=== PATIENT | female | born 1995 | race Hispanic/Latino ===

== ENCOUNTER → 2016-12-03 | Outpatient (CLI) | payer OTHER ==
--- NOTE | 2016-12-03 14:27 | Diagnostic Imaging Report ---
First trimester OB ultrasound. INDICATION: Dating. FINDINGS: There is a normal-appearing single intrauterine . An embryo is seen with cardiac activity at 169 beats per minute. The crown-rump length is at 10 weeks and 6 days. JAMESON is 06/25/17. The right ovary is 3.1 x 2.6 x 3.2 CM in size and appears normal. The left ovary is obscured by bowel gas. IMPRESSION: Live single intrauterine . Dictated by: Dictated on workstation # [id number]
== END ==
LOC: RAD 13:35
PROVIDERS: ATTEND Family Medicine
DX: Z34.01 Encounter for supervision of normal first pregnancy, first trimester (principal)
CPT/HCPCS: 76801

== ENCOUNTER → 2017-02-08 | Outpatient (CLI) | payer OTHER ==
--- NOTE | 2017-02-08 11:19 | Diagnostic Imaging Report ---
INDICATION: survey. TECHNIQUE: Multiple real-time grayscale images were obtained over the gravid uterus. COMPARISON: 12/03/2016. FINDINGS: The heart rate is 129 BPM. The cervix is closed and measures 5.2 cm in length. The placenta is to the right and posterior with no placenta previa. There is adequate amniotic fluid seen. The survey demonstrates normal size of the ventricles, normal posterior fossa, and no abnormality in the spine. There is an unremarkable appearance of the urinary bladder and stomach with two umbilical arteries demonstrated. The cord insertion and the four-chamber view are not well seen due to position. Biometrical measurements are as follows: Biparietal 4.72 cm, age 20 weeks 2 days. Head circumference 17.15 cm, age 19 weeks 6 days. Abdominal circumference 14.21 cm, age 19 weeks 4 days. Femur length 3.27 cm, age 20 weeks 2 days. Sonographic estimate age: 20 weeks 0 days. This compares to a gestational age of 20 weeks and 3 days based on the JAMESON of 06/25/2017. Sonographic estimated date of delivery: 06/28/2017. Estimated Weight: 318 gm (+/- 46 gm). LMP percentile: 18%. heart rate: 129 beats per minute. number: 1 of 1. IMPRESSION: Followup within 2 weeks is recommended to attempt to better visualize the cord insertion and four-chamber view. Dictated by: Dictated on workstation # [id number]
== END ==
LOC: RAD 09:35
PROVIDERS: ATTEND Family Medicine
DX: Z36 Encounter for antenatal screening of mother; Z3A.20 20 weeks gestation of pregnancy
CPT/HCPCS: 76805

== ENCOUNTER → 2017-02-22 | Outpatient (CLI) | payer OTHER ==
--- NOTE | 2017-02-22 16:59 | Diagnostic Imaging Report ---
INDICATION: Evaluate umbilical cord insertion and cardiac structures. COMPARISON: 02/08/2017. TECHNIQUE: Multiple Real-time grayscale images were obtained over the gravid uterus. FINDINGS: A king intrauterine gestation is again identified. cardiac activity is present with a rate of 135 BPM. The placenta is posterior without evidence of previa. There is no evidence of cardiac anomaly. There is no evidence of herniation or abnormality at the cord insertion. IMPRESSION: No placental, umbilical cord, or cardiac abnormality is identified. Dictated by: Dictated on workstation # [id number]
== END ==
LOC: RAD 14:51
PROVIDERS: ATTEND Family Medicine
DX: Z36 Encounter for antenatal screening of mother (principal); Z3A.00 Weeks of gestation of pregnancy not specified
CPT/HCPCS: 76816

== ENCOUNTER 2017-06-28 18:41 | Inpatient (IN) | payer OTHER ==
[~2017-06-28] VITALS: Ht 144.8 cm; Wt 76.4 kg
[2017-06-28] MEDS ORDERED: D5 LR IV SOLUTION 1,000 ML IV ONE (19:08)
[2017-06-28] MEDS: D5 LR IV SOLUTION 1,000 ML IV SCH (19:30)
[2017-06-28 19:40] VITALS: BP 111/71
[2017-06-28] MEDS ORDERED: AMPICILLIN 2000 MG INJECTION (IM/IV) ONE (19:43)
[2017-06-28] MEDS ORDERED: LACTATED RINGERS 1,000 ML IV ONE (19:43)
[2017-06-28] MEDS ORDERED: NS (IVPB) 50 ML ONE (19:43)
[2017-06-28] MEDS ORDERED: AMPICILLIN INJECTION 2,000 MG in NS (IVPB) 50 ML IV SCH (20:03)
--- NOTE | 2017-06-28 20:11 | History & Physical-OB ---
OB - Chief Complaint & HPI Date/Time Date of Admission: Date of Admission: Jun 28, 2017 at 6:41 pm Time Seen by Provider: 19:45 Chief Complaint/History OB-Reason for Admission/Chief: Induction of Labor Hx : 1 Hx Para: 0 Expected Date of Delivery: Jun 23, 2017 Gestational Age in Weeks: 40 Gestational Age in Days: 5 Indication for induction: post dates History of Labs A positive, antibody neg. HIV/Hep B/RPR NR. GC/chlamydia neg. Declined quad screen. GBS positive. Allergies and Home Medications Allergies Coded Allergies: No Known Drug Allergies (Unverified , 06/28/17) OB - History Hx of Present Care: Yes Ultrasounds: Normal mid trimester US Obstetrical Complications: None Medical Complications: None Obstetrical History Hx : 1 Hx Para: 0 Patient Past Medical History PMHx: Latent tuberculosis Social History/Family History HIV/AIDS: No Recent Infectious Disease Expo: No Sexually Transmitted Disease: No Alcohol Use: Denies Use Recreational Drug Use: No Smoking Cessation: Never smoker Immunizations Tetanus Booster (TDap): Less than 5yrs Rubella: immune RPR/VDRL: Negative GBS Status: Positive HBsAG: Negative OB - Admission Exam Physical Exam HEENT: NCAT Abdomen: Gravid Extremities: Edema (mild non-pitting) Cervical Dilatation: 1cm Effacement: 0% Station: -3 Membranes: Intact Heart Rate: 120's Accelerations: Accelerations Present Decelerations: No Decelerations Short Term Variability: Present Development Intern Variability: Average (6-25) Contractions on Admission: None Mejias Scoring Tool (Modified) Dilation (cm): 1-2cm (1) Effacement (%): 0-30% (0) Descent/Station: -3 (0) Cervix Consistency: Soft (2) Cervix Position: Middle/Mid-Position (1) Subtract 1 point for: Postdate (-1), Nulliparity (-1) Mejias Score: 2 OB - Assessment/Plan/Diagnosis Assessment Assessment: group B positive strep, induction of labor Plan Plan: Induction Induction Method: other (ampicillin for GBS positive) Copy Copies To 1: SASHA LOPEZ MD, BETHANY N MD Jun 28, 2017 20:11
[2017-06-28 20:13] LABS: BASOPHILS % (AUTO) 0 % (0-10); EOSINOPHILS # (AUTO) 0.1 10^3/uL (0.0-0.3); EOSINOPHILS % (AUTO) 1 % (0-10); LYMPHOCYTES # (AUTO) 2.2 X 10^3 (1.0-4.0); LYMPHOCYTES % (AUTO) 28 % (12-44); MEAN CORPUSCULAR HEMOGLOBIN 29 PG (25-34); MEAN CORPUSCULAR HGB CONC 34 G/DL (32-36); MEAN CORPUSCULAR VOLUME 84 FL (80-99); MEAN PLATELET VOLUME 12.9 FL (7.4-10.4); MONOCYTES # (AUTO) 0.5 X 10^3 (0.0-1.0); MONOCYTES % (AUTO) 6 % (0-12); NEUTROPHILS # (AUTO) 5.2 X 10^3 (1.8-7.8); NEUTROPHILS % (AUTO) 65 % (42-75); PLATELET COUNT 129 10^3/uL (130-400); RED BLOOD COUNT 4.36 10^6/uL (4.35-5.85); RED CELL DISTRIBUTION WIDTH 15.6 % (10.0-14.5)
[2017-06-28 21:00] VITALS: BP 115/74
[2017-06-28] MEDS: MISOPROSTOL 100 MCG (CYTOTEC) TAB PV SCH (21:02)
[2017-06-28] MEDS ORDERED: PREN-53 PO (21:42)
[2017-06-28 22:00] VITALS: BP 109/55
[2017-06-28] MEDS: CATHETER FLUSH 10 ML SYR IV SCH (22:00)
[2017-06-28 23:00] VITALS: BP 105/60
[2017-06-29] VITALS (28 sets, daily range): BP systolic 110–137; BP diastolic 65–94
[2017-06-29] MEDS: AMPICILLIN INJECTION 1,000 MG in NS (IVPB) 50 ML IV SCH ×6 (00:55→21:14)
[2017-06-29] MEDS: MISOPROSTOL 100 MCG (CYTOTEC) TAB PV SCH ×3 (00:55→09:11)
[2017-06-29] MEDS: D5 LR IV SOLUTION 1,000 ML IV SCH ×4 (03:38→18:50)
[2017-06-29] MEDS: CATHETER FLUSH 10 ML SYR IV SCH ×3 (06:00→22:15)
[2017-06-29] MEDS ORDERED: OXYTOCIN/NORMAL SALINE 500 ML IV ONE (13:32)
[2017-06-29] MEDS: OXYTOCIN/NORMAL SALINE 500 ML IV SCH (13:46)
--- NOTE | 2017-06-29 17:16 | Labor Progress Note ---
Labor Progress Note Labor Progress Note Date Seen by Provider: Jun 29, 2017 Time Seen by Provider: 17:13 Subjective: Pt feeling more painful contractions. Objective: Cervical exam: 10/24/ Consistency: soft Position: anterior Presentation: vertex heart tones: 140 beats per minute, moderate variability, reactive Tocometer: 5-6 ctx/10 minutes Assessment/Plan: Mary Lacey is a (21 /Para 1 / 0,Gestational Age (wks)40 here for IOL for postdates. CEFM/TOCO Double balloon catheter placed without complication, will hold pitocin for now given frequent contractions with minimal cervical change Anesthesia: None Anticipate vaginal delivery Vitals - Labs Vital Signs - I&O Vital Signs 06/29/17 06/29/17 06/29/17 05:05 11:30 14:20 Temp 97.7 Pulse 81 Resp 16 B/P (MAP) 125/76 O2 Delivery Room Air Labs Laboratory Tests 06/28/17 19:30: White Blood Count 8.0, Red Blood Count 4.36, Hemoglobin 12.5, Hematocrit 37, Mean Corpuscular Volume 84, Mean Corpuscular Hemoglobin 29, Mean Corpuscular Hemoglobin Concent 34, Red Cell Distribution Width 15.6H, Platelet Count 129L, Mean Platelet Volume 12.9H, Neutrophils (%) (Auto) 65, Lymphocytes (%) (Auto) 28 , Monocytes (%) (Auto) 6, Eosinophils (%) (Auto) 1, Basophils (%) (Auto) 0, Neutrophils # (Auto) 5.2, Lymphocytes # (Auto) 2.2, Monocytes # (Auto) 0.5, Eosinophils # (Auto) 0.1, Basophils # (Auto) 0.0 SASHA LOPEZ MD Jun 29, 2017 5:16 pm
[2017-06-29] MEDS: fentaNYL INJECTION 100 MCG/2 ML AMP IVP PRN (20:17)
[2017-06-30] VITALS (68 sets, daily range): BP systolic 92–140; BP diastolic 51–85
[2017-06-30] MEDS: D5 LR IV SOLUTION 1,000 ML IV SCH ×3 (01:34→17:16)
[2017-06-30] MEDS: AMPICILLIN INJECTION 1,000 MG in NS (IVPB) 50 ML IV SCH ×5 (01:34→17:16)
[2017-06-30] MEDS: CATHETER FLUSH 10 ML SYR IV SCH ×2 (06:05→14:19)
--- NOTE | 2017-06-30 06:41 | Labor Progress Note ---
Labor Progress Note Labor Progress Note Date Seen by Provider: Jun 30, 2017 Time Seen by Provider: 06:25 Subjective: Pt is feeling hungry and tired. Objective: Cervical exam: 5/60/-2 Consistency: soft Position: anterior Presentation: vertex heart tones: 130 beats per minute, moderate variability, no decels Tocometer: 3-4 ctx/10 minutes Assessment/Plan: Mary Lacey is a 21 /Para 1 / 0,Gestational Age (wks)40 here for IOL for postdates. CEFM/TOCO Ly bulb removed due to length of insertion at just over 12 hours AROM done at 0630 with clear fluid Restart pitocin Anesthesia: none Anticipate vaginal delivery. Vitals - Labs Vital Signs - I&O Vital Signs 06/29/17 06/30/17 16:30 06:13 Temp 97.8 Pulse 83 Resp 18 B/P (MAP) 105/67 O2 Delivery Room Air SASHA LOPEZ MD Jun 30, 2017 6:41 am
[2017-06-30] MEDS: fentaNYL INJECTION 100 MCG/2 ML AMP IVP PRN ×2 (08:09→09:08)
[2017-06-30] MEDS ORDERED: fentaNYL INJECTION 100 MCG/2 ML AMP IVP PRN (10:45)
[2017-06-30] MEDS ORDERED: SUFENTA 0.6MCG/ML BUPIVA 0.125 100 ML ONE (10:51)
[2017-06-30] MEDS ORDERED: fentaNYL INJECTION 100 MCG/2 ML AMP ONE ×2 (12:03→20:11)
[2017-06-30] MEDS ORDERED: LACTATED RINGERS 1,000 ML IV ONE ×2 (13:51→20:48)
[2017-06-30] MEDS ORDERED: diphenhydrAMINE 50 MG/ML INJ (BENADRYL) IV PRN ×2 (14:00→21:45)
[2017-06-30] MEDS ORDERED: METOCLOPRAMIDE INJ 10 MG/2 ML (REGLAN) IV PRN ×2 (14:00→21:45)
[2017-06-30] MEDS ORDERED: ONDANSETRON 4 MG/2 ML (SDV) Z0FRAN IV PRN ×2 (14:00→21:45)
[2017-06-30] MEDS ORDERED: EPIDURAL (SUFENTA 0.6MCG/ML BUPIVA 0.125%) 100 ML BAG EPI PRN (14:00)
[2017-06-30] MEDS ORDERED: NALOXONE 0.4 MG/ML 1 ML (NARCAN) VIAL IV PRN ×4 (14:00→21:45)
[2017-06-30] MEDS: OXYTOCIN/NORMAL SALINE 500 ML IV SCH ×2 (16:30→23:00)
[2017-06-30] MEDS ORDERED: NS (IVPB) 0 ML ONE (19:55)
[2017-06-30] MEDS ORDERED: CITRIC ACID/SOB CIT (BICITRA) 30 ML UDC ONE (19:55)
[2017-06-30] MEDS ORDERED: ceFAZolin 2 GM/50 ML NS 50 ML ONE (19:55)
[2017-06-30] MEDS ORDERED: FAMOTIDINE 20MG/2ML IV (PEPCID) ONE (19:56)
[2017-06-30] MEDS ORDERED: KETAMINE HCL 100 MG/ML 5 ML VIAL ONE (20:12)
[2017-06-30] MEDS ORDERED: FAMOTIDINE 20MG/2ML IV (PEPCID) IV ONE (20:15)
[2017-06-30] MEDS ORDERED: METOCLOPRAMIDE INJ 10 MG/2 ML (REGLAN) IV ONE (20:15)
[2017-06-30] MEDS ORDERED: CITRIC ACID/SOB CIT (BICITRA) 30 ML UDC PO ONE (20:15)
[2017-06-30] MEDS ORDERED: CATHETER FLUSH 10 ML SYR IV PRN (20:15)
[2017-06-30] MEDS: metroNIDAZOLE 500MG/100ML IVPB 100 ML ONE (20:20)
--- NOTE | 2017-06-30 20:26 | Progress Note-Pre Operative ---
Pre-Operative Progress Note H&P Reviewed The H&P was reviewed, patient examined and no changes noted per her PCP Dr. Keenan. Date Seen by Provider: Jun 30, 2017 Time Seen by Provider: 20:25 Date H&P Reviewed: Jun 30, 2017 Time H&P Reviewed: :25 Pre-Operative Diagnosis: term/postdates in labor with failure to progress GRAHAM GERMAIN MD Jun 30, 2017 8:26 pm
[2017-06-30] MEDS ORDERED: MEPERIDINE (DEMEROL) INJ 100 MG/ML IM PRN (20:30)
[2017-06-30] MEDS ORDERED: TETANUS,DIPTH,PERTUSS P/F (BOOSTRIX) 0.5 ML VIAL IM ONE (20:30)
[2017-06-30] MEDS ORDERED: PROMETHAZINE INJ 25 MG/ML (PHENERGAN) AMP IM PRN (20:30)
[2017-06-30] MEDS ORDERED: ONDANSETRON 4 MG/2 ML (SDV) Z0FRAN IVP PRN ×2 (20:30→21:45)
[2017-06-30] MEDS ORDERED: MEASLES,MUMPS,RUBELLA 1 EA INJ SC ONE (20:30)
[2017-06-30] MEDS ORDERED: metroNIDAZOLE 500MG/100ML IVPB 100 ML IV NR (20:30)
[2017-06-30] MEDS ORDERED: D5 LR IV SOLUTION 1,000 ML IV ONE (20:31)
[2017-06-30] MEDS ORDERED: ONDANSETRON 4 MG/2 ML (SDV) Z0FRAN ONE (20:59)
[2017-06-30] MEDS ORDERED: OXYTOCIN/NORMAL SALINE 1,000 ML IV ONE (21:28)
[2017-06-30] MEDS ORDERED: KETOROLAC 30 MG/ML VIAL ONE (21:33)
[2017-06-30] MEDS ORDERED: MEPERIDINE (DEMEROL) INJ 50 MG/ML IVP PRN (21:45)
[2017-06-30] MEDS ORDERED: morphine INJ 10 MG/ML 1ML (SYR OR VIAL) IVP PRN (21:45)
[2017-06-30] MEDS: KETOROLAC 30 MG/ML VIAL IVP SCH (21:45)
[2017-07-01] MEDS: metroNIDAZOLE 500MG/100ML IVPB 100 ML ONE (00:33)
[2017-07-01] MEDS: AMPICILLIN INJECTION 1,000 MG in NS (IVPB) 50 ML IV SCH ×3 (00:34→06:02)
[2017-07-01] MEDS: DOCUSATE SODIUM 100 MG (COLACE) CAP PO SCH ×3 (00:39→21:32)
[2017-07-01] MEDS: CATHETER FLUSH 10 ML SYR IV SCH ×2 (00:39→06:02)
[2017-07-01] MEDS: KETOROLAC 30 MG/ML VIAL IVP SCH (03:28)
[2017-07-01] MEDS: oxyCODONE/APAP 10/325MG (PERCOCET 10) TABLET PO PRN ×3 (03:40→21:33)
[2017-07-01 04:00] VITALS: BP 108/68
--- NOTE | 2017-07-01 04:56 | OPERATIVE REPORT ---
DATE OF SERVICE: 06/30/2017 PREOPERATIVE DIAGNOSIS: Postdates in labor with failure to progress. POSTOPERATIVE DIAGNOSIS: Postdates in labor with failure to progress. OPERATIVE PROCEDURE: Primary low transverse delivery of a viable female infant with Apgars of 9 and 9 at 1 and 5 minutes respectively, weight 7 pounds 4 ounces, time of 2108 and cord blood pH was 7.3. OPERATIVE DESCRIPTION: With the patient in the supine position under satisfactory spinal anesthesia, she was prepped and draped in usual fashion for abdominal surgery. A Ly catheter had been placed in the urinary bladder during labor and that was left to dependent drainage. A Pfannenstiel incision was made through the skin with a scalpel. The patient's abdomen entered in the usual manner. Bladder retractor was placed into position and a clean scalpel was used to make a 4 cm hysterotomy incision transversally across the lower uterine segment. Small amount of meconium-stained fluid was released on hysterotomy. The incision was extended by blunt dissection. A vigorous viable female was delivered via the uterine incision. had Apgars of 9 and 9 at 1 and 5 minutes respectively. Weight was 7 pounds 4 ounces. Cord blood pH of 7.3 and time of 2108. The infant was bulb suctioned on delivery of the head and again on completion of delivery. The umbilical cord was doubly clamped and cut and the passed to Dr. Keenan, link cutter, in attendance for delivery. Cord blood was obtained. The placenta delivered spontaneously Huitron. It was normal with a 3-vessel cord. The uterus was exteriorized and to wipe clean with a wet laparotomy sponge. Uterine incision was closed with a running locked suture of 2-0 Vicryl. Hemostasis was satisfactory. The uterus was quite atonic and boggy responding only minimally with IV Pitocin. This patient had labored for a prolonged period and had been on Pitocin for much of that time. A modified B-Miller suture was placed using 2-0 looped chromic sutures divided in the middle. This was performed in a modified manner compressing the uterus nicely and controlling blood loss. The uterus was now returned to abdominal cavity. All blood clot and debris removed from the abdominal cavity. Sponge and needle counts correct. Hemostasis assured. The anterior parietal peritoneum was closed with a running suture of 2-0 Vicryl. Rectus muscles were closed with that suture as well. Rectus fascia was closed with 2-0 Vicryl, subcutaneous tissue with 2-0 Vicryl and the skin was stapled. Sponge and needle counts were correct at the end of procedure. Estimated blood loss for the procedure was around 600 mL. The patient tolerated the procedure well and was transferred to the recovery room in stable condition. taken stable to the full term nursery under the care of Dr. Keenan. Job ID: [id number] DocumentID: [id number] Dictated Date: 06/30/2017 21:36:47 Steam Tunnel Feeder Date: 07/01/2017 04:56:37 Dictated By: GRAHAM GERMAIN MD
[2017-07-01] MEDS: D5 LR IV SOLUTION 1,000 ML IV SCH (06:01)
--- NOTE | 2017-07-01 07:52 | Progress Note-Standard ---
Standard Progress Note Progress Notes/Assess & Plan Date Seen by Provider: Jul 01, 2017 Time Seen by Provider: 07:51 Progress/Assessment & Plan this patient is without complaint. She is ambulating, voiding, has good pain control, is tolerating by mouth well. patient denies chest pain, denies shortness of breath, denies headache, denies nausea vomiting. Vital Signs Date Time Temp Pulse Resp B/P (MAP) Pulse Ox O2 Delivery O2 Flow Rate FiO2 07/01/17 04:00 99.0 85 18 108/68 97 07/01/17 00:26 Room Air 06/30/17 23:30 98.0 71 18 97/53 99 06/30/17 23:00 98.2 67 18 95/61 96 06/30/17 20:30 77 18 127/76 97 06/30/17 20:00 90 18 126/75 98 06/30/17 19:31 99.1 82 18 134/80 99 06/30/17 19:17 75 18 130/76 99 06/30/17 19:05 73 18 132/77 99 06/30/17 19:00 06/30/17 18:45 83 18 132/71 100 06/30/17 18:30 82 18 131/79 06/30/17 18:15 79 18 134/76 97 06/30/17 18:00 98.7 86 18 113/72 97 06/30/17 17:45 73 18 112/70 97 06/30/17 17:30 06/30/17 17:20 71 18 124/74 98 06/30/17 17:15 06/30/17 17:00 77 18 117/71 98 06/30/17 16:45 71 18 126/75 98 06/30/17 16:30 85 18 125/70 99 06/30/17 16:15 98.5 73 18 127/73 99 06/30/17 16:00 81 18 117/70 99 06/30/17 15:45 81 18 111/63 99 06/30/17 15:30 82 18 115/66 98 06/30/17 15:15 77 18 107/58 97 06/30/17 15:00 72 18 105/56 98 06/30/17 14:45 82 18 121/69 97 06/30/17 14:30 77 18 125/71 98 06/30/17 14:15 81 18 111/69 97 06/30/17 14:00 97.9 75 18 113/71 97 06/30/17 13:45 78 18 115/70 97 06/30/17 13:30 85 18 108/70 98 06/30/17 13:15 101 18 101/61 98 06/30/17 13:00 87 18 106/60 96 06/30/17 12:56 83 106/61 06/30/17 12:53 87 107/62 98 06/30/17 12:50 90 105/64 06/30/17 12:48 96 110/67 06/30/17 12:45 86 18 107/56 96 06/30/17 12:42 82 103/58 06/30/17 12:39 89 105/61 97 06/30/17 12:36 92 108/63 96 06/30/17 12:33 86 104/58 06/30/17 12:30 89 18 106/61 99 06/30/17 12:26 93 105/60 06/30/17 12:23 96 107/64 98 06/30/17 12:20 99.0 91 106/65 98 06/30/17 12:15 91 18 109/70 99 06/30/17 12:05 84 128/75 98 06/30/17 12:00 90 18 135/84 99 06/30/17 11:52 90 18 137/76 06/30/17 11:40 99 18 140/69 06/30/17 11:20 93 18 114/59 06/30/17 10:50 99 18 113/68 06/30/17 10:35 85 18 103/55 06/30/17 09:40 99.3 06/30/17 09:23 81 18 120/69 06/30/17 08:40 84 18 122/81 06/30/17 08:25 80 18 109/63 06/30/17 08:05 82 18 125/67 06/30/17 07:52 76 18 134/85 the abdomen is benign. The incision is clean dry and intact. The fundus is firm below the umbilicus nontender. Extremities show clubbing cyanosis. There is no Homans sign. There is some pretibial pitting edema that is normal. Assessment and plan postoperative day number 1 status post primary delivery doing well. Plan is for routine convalescence care GRAHAM GERMAIN MD Jul 01, 2017 7:52 am
[2017-07-01 08:35] VITALS: BP 110/59
[2017-07-01] MEDS: IBUPROFEN 800 MG (MOTRIN) TAB PO SCH ×3 (09:54→21:32)
--- NOTE | 2017-07-01 11:42 | Anesthesia-Regional Post-Op ---
Regional Patient Condition Mental Status: Alert, Oriented x3 Circulation: Same as Pre-Op Headache: Absent Sensation: Full Recovery Motor Block: Absent Post Op Complications Complications None Follow Up Care/Instructions Patient Instructions None needed. Anesthesia/Patient Condition Patient is doing well, no complaints, stable vital signs, no apparent adverse anesthesia problems. No complications reported per nursing. SAMANTHA REICH CRNA Jul 01, 2017 11:42
[2017-07-01 12:57] VITALS: BP 112/73
[2017-07-01 16:04] VITALS: BP 107/67
[2017-07-01 20:02] VITALS: BP 110/74
[2017-07-01] MEDS ORDERED: IBUPROFEN 800 MG (MOTRIN) TAB PO SCH (20:30)
[2017-07-02 02:00] VITALS: BP 101/65
[2017-07-02] MEDS: oxyCODONE/APAP 10/325MG (PERCOCET 10) TABLET PO PRN ×2 (04:25→10:34)
[2017-07-02] MEDS: IBUPROFEN 800 MG (MOTRIN) TAB PO SCH ×2 (04:25→10:34)
--- NOTE | 2017-07-02 07:45 | Discharge Summary ---
Discharge Summary term primary delivery this patient is a 21-year-old female patient of Dr. Keenan. She was admitted on May 28 for Cervidil cervical ripening. On the she was started on Pitocin for labor induction. Apparently may very little progress through that day. On May 30 patient with continued up by Pitocin she progressed to about 5 cm where she stalled. After a number of hours of no cervical change Dr. Keenan to proceed with delivery. I was consult for that . Patient was taken the operating room where under spinal analgesia primary was performed. The procedure was uncomplicated patient recovered uneventfully. On May 31 the patient was ambulating, voiding, tolerating by mouth, had good pain control. She had routine care through the day. Now on July 02 patient again is ambulating, voiding, tolerating by mouth well and has good pain control. She is requesting discharge home. She denies headache, denies shortness of breath, denies nausea vomiting, denies chest pain. primarydiagnoses this hospitalization is postdates primary delivery secondary diagnoses are failure to progress in labor, cephalopelvic disproportion, GBS positive culture Operation procedures include cervical ripening, Pitocin induction of labor, epidural analgesia, bimanual analgesia for primary delivery., Patient was given appropriate discharge instructions verbally and writing Was placed in chart Discharge medications are Percocet and Motrin and Colace Clinical Quality Measures DVT/VTE Risk/Contraindication: Risk Factor Score Per Nursin RFS Level Per Nursing on Admit: 1=Low/No VTE PPX GRAHAM GERMAIN MD Jul 02, 2017 7:45 am
[2017-07-02] MEDS ORDERED: DOCU100C37 PO (07:46)
[2017-07-02] MEDS ORDERED: OXYC-465 PO (07:46)
[2017-07-02] MEDS ORDERED: IBUP-1780 PO (07:46)
--- NOTE | 2017-07-02 07:47 | Discharge Instructions ---
Discharge Instructions Discharge Medications New, Converted or Re-Newed RX: RX on Chart Patient Instructions Patient Instructions: as directed Return to The Hospital For: as directed Activity & Diet Discharge Diet: No Restrictions Activity as Tolerated: No Orders-Post D/C & Referrals Follow Up Appt: RTC 1 week for incision check with me Call to make follow up appt. for patient with Dr. Keenan in 6 weeks. Wound Care: Remove jennifer, apply benzoin and steri strips. Activity Per routine post instructions. Diet as tolerated Patient may shower or tub bathe as desired. Continue home meds GRAHAM GERMAIN MD Jul 02, 2017 7:47 am
[2017-07-02 09:00] VITALS: BP 112/75
[2017-07-02] MEDS: DOCUSATE SODIUM 100 MG (COLACE) CAP PO SCH (10:34)
[2017-07-02 14:00] VITALS: BP 123/81
[2017-07-02 16:35] VITALS: BP 123/81
== END 2017-07-02 16:35 | disposition home or self-care (01) | DRG 766 ==
LOC: LDRP 18:41
PROVIDERS: ADMIT Family Medicine; ATTEND Family Medicine
PROC: 3E033VJ Introduction of Other Hormone into Peripheral Vein, Percutaneous Approach (ICD-10-PCS; 2017-06-28)
PROC: 0U7C7ZZ Dilation of Cervix, Via Natural or Artificial Opening (ICD-10-PCS; 2017-06-29)
PROC: 10D00Z1 Extraction of Products of Conception, Low, Open Approach (ICD-10-PCS; principal; 2017-06-30 20:46)
DX: O48.0 Post-term pregnancy (principal); O99.824 Streptococcus B carrier state complicating childbirth; O66.40 Failed trial of labor, unspecified; O65.4 Obstructed labor due to fetopelvic disproportion, unspecified; Z3A.40 40 weeks gestation of pregnancy; Z37.0 Single live birth
CPT/HCPCS: 36415; 85025; 86850; 86900; 86901; 94664

== ENCOUNTER → 2017-08-23 | Outpatient (CLI) | payer OTHER ==
[~2017-08-23] MED LIST: DOCU100C37 PO; IBUP-1780 PO; OXYC-465 PO; PREN-53 PO
--- NOTE | 2017-08-23 10:10 | Diagnostic Imaging Report ---
INDICATION: Elevated liver function tests. FINDINGS: The liver is normal in size at 16 cm. The liver demonstrates homogeneous echotexture. No discrete liver mass is identified. The portal vein is patent and demonstrates normal direction of flow. Gallbladder is without stones or sludge. No wall thickening or pericholecystic fluid is seen. There is no biliary duct dilatation. The pancreas is obscured by bowel gas. Right kidney is unremarkable. There is no ascites. IMPRESSION: Unremarkable right upper quadrant ultrasound. Dictated by: Dictated on workstation # [id number]
== END ==
LOC: RAD 07:53
PROVIDERS: ATTEND Family Medicine
DX: R94.5 Abnormal results of liver function studies (principal)
CPT/HCPCS: 76705

== ENCOUNTER → 2020-05-07 | Outpatient (CLI) | payer BC ==
[~2020-05-07] MED LIST changes: +ACHD5005 PO; +DCS100C PO; +IBUP-844 PO; -OXYC-465 PO; +OXYC-556 PO; +PREN-142 PO
== END ==
LOC: LABNPT 06:13
PROVIDERS: ATTEND Obstetrics & Gynecology
DX: Z01.818 Encounter for other preprocedural examination (principal); Z01.812 Encounter for preprocedural laboratory examination; L89.159 Pressure ulcer of sacral region, unspecified stage; Z20.828 Contact with and (suspected) exposure to other viral communicable diseases
CPT/HCPCS: 87635

== ENCOUNTER 2020-05-08 05:17 | Inpatient (IN) | payer BC ==
[~2020-05-08] VITALS: Ht 146 cm; Wt 78.1 kg
[2020-05-08] VITALS (9 sets, daily range): BP systolic 79–114; BP diastolic 49–69
[~2020-05-08 05:17] MED LIST changes: -ACHD5005 PO; +CITRIC ACID/SOB CIT (BICITRA) 30 ML UDC ONE; -DCS100C PO; +FAMOTIDINE 20MG/2ML IV (PEPCID) ONE; -IBUP-844 PO; +METOCLOPRAMIDE INJ 10 MG/2 ML (REGLAN) ONE; +WATER (STERILE) FOR INJECTION 20 ML ONE; +ceFAZolin INJECTION 1,000 MG ONE
--- NOTE | 2020-05-08 06:05 | NUR ---
TANISHA DING presented to unit via ambulation from home/ED, accompanied by SO, for Repeat CSection. TANISHA DING weighed, gowned, voided, and to bed. EFHM and TOCO applied, VS taken. TANISHA DING oriented to bed controls, call light, TV, heat, and A/C controls.
[2020-05-08] MEDS ORDERED: LACTATED RINGERS 1,000 ML IV PRN ×2 (06:07)
[2020-05-08] MEDS ORDERED: ceFAZolin INJECTION 1,000 MG in WATER (STERILE) FOR INJECTION 10 ML IV ONE (06:15)
[2020-05-08] MEDS ORDERED: METOCLOPRAMIDE INJ 10 MG/2 ML (REGLAN) IV ONE (06:15)
[2020-05-08] MEDS ORDERED: CITRIC ACID/SOB CIT (BICITRA) 30 ML UDC PO ONE (06:15)
[2020-05-08] MEDS ORDERED: FAMOTIDINE 20MG/2ML IV (PEPCID) IV ONE (06:15)
[2020-05-08 06:43] LABS: BASOPHILS % (AUTO) 0 % (0-10); EOSINOPHILS # (AUTO) 0.1 10^3/uL (0.0-0.3); EOSINOPHILS % (AUTO) 2 % (0-10); HEMATOCRIT 35 % (35-52); HEMOGLOBIN 11.5 g/dL (11.5-16.0); LYMPHOCYTES # (AUTO) 2.2 10^3/uL (1.0-4.0); LYMPHOCYTES % (AUTO) 34 % (12-44); MEAN CORPUSCULAR HEMOGLOBIN 29 pg (25-34); MEAN CORPUSCULAR HGB CONC 33 g/dL (32-36); MEAN CORPUSCULAR VOLUME 87 fL (80-99); MONOCYTES # (AUTO) 0.4 10^3/uL (0.0-1.0); MONOCYTES % (AUTO) 7 % (0-12); NEUTROPHILS # (AUTO) 3.7 10^3/uL (1.8-7.8); NEUTROPHILS % (AUTO) 57 % (42-75); PLATELET COUNT 164 10^3/uL (130-400); WHITE BLOOD COUNT 6.5 10^3/uL (4.3-11.0)
[2020-05-08] MEDS ORDERED: fentaNYL INJECTION 100 MCG/2 ML AMP ONE (07:07)
[2020-05-08] MEDS ORDERED: OXYTOCIN PRE-MIX DRIP 500 ML IV SCH (07:12)
--- NOTE | 2020-05-08 07:12 | History & Physical-OB ---
OB - Chief Complaint & HPI Date/Time Date of Admission: Date of Admission: May 08, 2020 at 06:03 Date seen by a Provider: May 08, 2020 Time Seen by a Provider: 07:05 Chief Complaint/History OB-Reason for Admission/Chief: Section Hx : 2 Hx Para: 1 Expected Date of Delivery: May 14, 2020 Gestational Age in Weeks: 39 Gestational Age in Days: 1 Indication for : desires repeat Admission Nurse Assessment Rev: Yes Allergies and Home Medications Allergies Coded Allergies: No Known Drug Allergies (Unverified , 05/02/20) Home Medications Vit No.124/Iron/FA 1 Each Tablet, 1 EACH PO DAILY, (Reported) Patient Home Medication List Home Medication List Reviewed: Yes OB - History Hx of Present Care: Yes Ultrasounds: Normal mid trimester US Obstetrical Complications: None Medical Complications: None Delivery History Adverse Rxn to Tranfusion: No (N/A) Patient Past Medical History PMHx: Latent tuberculosis Social History/Family History HIV/AIDS: No Recent Infectious Disease Expo: No Sexually Transmitted Disease: No Alcohol Use: Denies Use Recreational Drug Use: No Immunizations Tetanus Booster (TDap): Less than 5yrs Date of Influenza Vaccine: Apr 11, 2020 OB - Admission Exam Physical Exam Vitals: Vital Signs 05/08/20 06:16 Temp 36.8 Pulse 95 Resp 18 Pulse Ox 98 O2 Delivery Room Air HEENT: NCAT Heart: Rhythm Normal Lungs: Clear Abdomen: Gravid Extremities: Normal Reflexes: Normal Membranes: Intact Heart Rate: 130's Accelerations: Accelerations Present Decelerations: No Decelerations Short Term Variability: Present Photographic Intelligence Officer Variability: Average (6-25) Contractions on Admission: >10 Minutes Apart Labs Laboratory Tests Test 05/08/20 06:20 Range/Units White Blood Count 6.5 4.3-11.0 10^3/uL Red Blood Count 4.04 3.80-5.11 10^6/uL Hemoglobin 11.5 11.5-16.0 g/dL Hematocrit 35 35-52 % Mean Corpuscular Volume 87 80-99 fL Mean Corpuscular Hemoglobin 29 25-34 pg Mean Corpuscular Hemoglobin Concent 33 32-36 g/dL Red Cell Distribution Width 14.6 H 10.0-14.5 % Platelet Count 164 130-400 10^3/uL Mean Platelet Volume 13.0 H 9.0-12.2 fL Immature Granulocyte % (Auto) 0 % Neutrophils (%) (Auto) 57 42-75 % Lymphocytes (%) (Auto) 34 12-44 % Monocytes (%) (Auto) 7 0-12 % Eosinophils (%) (Auto) 2 0-10 % Basophils (%) (Auto) 0 0-10 % Neutrophils # (Auto) 3.7 1.8-7.8 10^3/uL Lymphocytes # (Auto) 2.2 1.0-4.0 10^3/uL Monocytes # (Auto) 0.4 0.0-1.0 10^3/uL Eosinophils # (Auto) 0.1 0.0-0.3 10^3/uL Basophils # (Auto) 0.0 0.0-0.1 10^3/uL Immature Granulocyte # (Auto) 0.0 0.0-0.1 10^3/uL OB - Assessment/Plan/Diagnosis Assessment Assessment: section Admission Dx 24 yo @ 39.1 weeks Previous Admission Status: Inpatient Order (span 2 midnights) Reason for Inpatient Admission: Repeat Plan Plan: Section KENDRICK PAYTON DO May 08, 2020 07:12
[2020-05-08] MEDS ORDERED: TETANUS,DIPTH,PERTUSS P/F (BOOSTRIX) 0.5 ML VIAL IM SCH (07:15)
[2020-05-08] MEDS ORDERED: MEASLES,MUMPS,RUBELLA 1 EA INJ SC SCH (07:15)
[2020-05-08] MEDS ORDERED: ONDANSETRON 4 MG/2 ML (SDV) Z0FRAN IVP PRN (07:15)
--- NOTE | 2020-05-08 07:19 | Discharge Inst-Women's Service ---
Discharge Inst-Women's Serv Depart Medication/Instructions New, Converted or Re-Newed RX: RX on Chart Final Diagnosis POD 2 RLTCS Problems Reviewed?: Yes Consults/Follow Up Additional Follow Up: Yes Orders/Referrals Dr. Smith in 7-[address] Addison in 6 weeks Activity Activity: Activity as Tolerated Driving Instructions: No Driving for 1 Week NO SMOKING: NO SMOKING Nothing Inside Vagina: No Douching, No [place], No Tampons Diet Discharge Diet: No Restrictions Symptoms to Report to : Bleeding Excessive, Pain Increased, Fever Over 101 Degrees F, Vaginal Bleeding Increase, Questions/Concerns For Any Problems or Questions: Contact Your Physician Skin/Wound Care Infection Signs and Symptoms: Increased Redness, Foul Odor of Wound, Increased Drainage, Skin Itchy or Has a Rash, Increased Swelling, Temperature Above 101 F Operative Area Clean and Dry: Keep Incision Clean/Dry Stitches/[place]/Dermabond: Dermabond, Care of Stitches Bathing Instructions: KNEDRICK Driscoll DO May 08, 2020 07:19
[2020-05-08] MEDS ORDERED: ACHD5005 PO (07:20)
[2020-05-08] MEDS ORDERED: IBUP-844 PO (07:20)
[2020-05-08] MEDS ORDERED: DCS100C PO (07:20)
[2020-05-08] MEDS ORDERED: PHENYLEPHRINE 100 MCG/ML 10 ML (ANESTHESIA) SYR ONE (07:31)
[2020-05-08] MEDS ORDERED: BUPIVACAINE 0.5% 30 ML (SENSORCAINE) VIAL ONE (08:06)
--- NOTE | 2020-05-08 09:26 | NUR ---
Transferred to room 308 from recovery room. Denies pain. Infant in nursery for further assessment and monitoring. Dad visiting baby.
[2020-05-08] MEDS: KETOROLAC 30 MG/ML VIAL IV SCH ×3 (11:02→22:56)
--- NOTE | 2020-05-08 11:56 | OPERATIVE REPORT ---
DATE OF SERVICE: PREOPERATIVE DIAGNOSES: 1. A 24-year-old G2, P1 at 39 weeks gestation. 2. Previous section. POSTOPERATIVE DIAGNOSES. 1. A 24-year-old G2, P1 at 39 weeks gestation. 2. Previous section. PROCEDURE: Repeat low transverse section. SURGEON: Stephon Payton DO [employer] SPECIALIST: CORI Hernandez. ANESTHESIA: Spinal. ESTIMATED BLOOD LOSS: 500 mL. URINE OUTPUT: 175 mL clear at the end of the procedure. FLUIDS: 2300 mL lactated Ringer's solution. FINDINGS: A live female weighing 7 pounds 4 ounces, Apgars of 6 and 9. Grossly normal appearing uterus, bilateral fallopian tubes and ovaries. SPECIMEN SENT: None. INDICATIONS FOR PROCEDURE: This 24-year-old female is a patient who had sought care with Dr. Addison at [facility]. Her care was uncomplicated. She desired repeat . Her previous delivery was a . She was seen in preoperative consultation in my office and all of the risk of repeat were reviewed with the patient. After all of her questions were answered, she was scheduled at 39 weeks and consent was obtained in the preoperative area, the patient was taken to the operating room. OPERATIVE REPORT IN DETAIL: Once in the operating room, spinal analgesia was found to be adequate, placed in supine position with leftward tilt, prepped and draped in normal sterile fashion. A timeout was performed, and anesthesia was tested. I then make a Pfannenstiel skin incision through the previously existing scar using a knife and carried down to underlying fascia using Bovie cautery. The fascial incision extended laterally using Bovie cautery. Superior aspect of the fascial incision was then grasped with Keisha clamps, tented up and dissected off the underlying rectus muscles. The inferior aspect of the fascial incision was then grasped with Keisha clamps, tented up and dissected off the underlying rectus muscles. Rectus muscles were dissected down the midline using sharp dissection, which exposed the peritoneum, which I entered bluntly and extended using blunt traction. Walt ring retractor was placed in the peritoneal incision, which offers excellent lateral sidewall retraction. I identified the lower uterine segment, which was found to be thinned out and make a low transverse incision to the vesicouterine peritoneum and bluntly dissected off the lower uterine segment, creating a bladder flap. I then proceeded with my myotomy until membranes are visualized, at which fornix extended the uterine incision laterally and superiorly using bandage scissors. Amniotomy was performed using Allis clamp. Clear fluid was noted. With gentle fundal pressure, the was delivered through the incision where the nares and oropharynx were bulb suctioned. Anterior and posterior shoulders were delivered. Infant was then brought to the operative field where the cord was doubly clamped and cut, and infant was handed off to waiting nurses in attendance. Cord blood was collected, 3-vessel cord with intact placenta was delivered spontaneously thereafter. IV Pitocin was initiated to facilitate uterine contraction. Uterine fundus became firmer with bimanual massage. The uterus was then exteriorized and cleared of all endometrial clots and debris. I then proceeded with closing the uterine incision using 0 Vicryl suture in running locked fashion. Second layer of imbricating 0 Monocryl was placed. Excellent hemostasis was noted after doing this. I then placed the uterus back within the pelvis and copiously irrigated the pelvis using normal saline. Once again, there was no active bleeding noted from any of my dissection planes. I placed Interceed antiadhesive over my low transverse incision and then removed the Walt ring retractor. I proceeded with closing the peritoneum using 3-0 Vicryl suture in running fashion. The rectus muscles were reapproximated using 3-0 Vicryl suture in interrupted fashion. The fascia was reapproximated using 0 Vicryl suture in running fashion. Subcutaneous tissue was reapproximated using 3-0 plain interrupted subcutaneous stitch and skin reapproximated using 4-0 Monocryl in a running subcuticular. Dermabond was applied to incision and sterile dressing with adhesive white tape. The patient tolerated the procedure well and was taken to recovery area in stable condition. Lap and sponge counts were correct at the end of the procedure. Instrument counts correct as well. Two grams of Ancef given preoperatively for infection prophylaxis. Job ID: [id number] DocumentID: [id number] Dictated Date: 05/08/2020 08:37:14 Credit Reporting Clerk Date: 05/08/2020 11:55:48 Dictated By: STEPHON PAYTON DO
--- NOTE | 2020-05-08 12:30 | NUR ---
Up to BR with ease. Voided 900 mls. Armida care provided and pad changed x 1 with light rubra flow. FF @ umb.Ambulated to nursery to see son.
[2020-05-08] MEDS: HYDROcodone/APAP 5 MG/325 MG (LORTAB) TAB PO PRN ×2 (13:18→19:11)
[2020-05-08] MEDS ORDERED: CATHETER FLUSH 10 ML SYR IV SCH (14:00)
--- NOTE | 2020-05-08 15:25 | NUR ---
VSS. Pt had ambulated to nursery to see baby. Tearful. Increased in pain due to ambulation.
[2020-05-09 03:05] VITALS: BP 98/67
[2020-05-09] MEDS: KETOROLAC 30 MG/ML VIAL IV SCH (06:06)
[2020-05-09 06:12] LABS: BASOPHILS % (AUTO) 0 % (0-10); EOSINOPHILS # (AUTO) 0.1 10^3/uL (0.0-0.3); EOSINOPHILS % (AUTO) 1 % (0-10); HEMATOCRIT 32 % (35-52); HEMOGLOBIN 10.4 g/dL (11.5-16.0); LYMPHOCYTES # (AUTO) 2.1 10^3/uL (1.0-4.0); LYMPHOCYTES % (AUTO) 25 % (12-44); MEAN CORPUSCULAR HEMOGLOBIN 28 pg (25-34); MEAN CORPUSCULAR HGB CONC 32 g/dL (32-36); MEAN CORPUSCULAR VOLUME 86 fL (80-99); MEAN PLATELET VOLUME 12.3 fL (9.0-12.2); MONOCYTES # (AUTO) 0.6 10^3/uL (0.0-1.0); MONOCYTES % (AUTO) 7 % (0-12); NEUTROPHILS # (AUTO) 5.7 10^3/uL (1.8-7.8); NEUTROPHILS % (AUTO) 67 % (42-75); PLATELET COUNT 146 10^3/uL (130-400); WHITE BLOOD COUNT 8.5 10^3/uL (4.3-11.0)
--- NOTE | 2020-05-09 08:47 | Postpartum Progress Note ---
Note Note Day # 1 Subjective: Patient is without complaints. Ambulating, voiding. Tolerating a regular diet without nausea or vomiting. Normal lochia. Pain is well controlled with oral pain medications. Objective: Physical Exam: General - Alert and oriented, no apparent distress Abdomen - Soft, appropriately tender to palpation, non-distended, fundus firm at umbilicus Extremities - no edema, negative Graciela's bilaterally Incision- c/d/i Assessment: POD 1 RLTCS Acute blood loss anemia Plan: Routine care. Encourage breast feeding. Encourage ambulation. Ferrous sulfate supplementation. Plan for discharge tomorrow Vitals - Labs Vital Signs - I&O Vital Signs Date Time Temp Pulse Resp B/P (MAP) Pulse Ox O2 Delivery O2 Flow Rate FiO2 05/09/20 03:05 37.0 91 16 98/67 (77) 96 05/08/20 22:58 36.9 88 16 104/69 (81) 96 05/08/20 15:25 36.7 86 16 104/58 (73) 96 05/08/20 11:00 36.9 96 16 102/54 (70) 96 Room Air 05/08/20 09:50 35.6 90 16 104/66 (79) 100 Room Air 05/08/20 09:15 36.1 12 93/58 (70) 100 Room Air 05/08/20 09:15 Room Air 0 05/08/20 09:00 Room Air 0 05/08/20 09:00 36.3 16 90/59 (69) 98 Room Air I & O 05/09/20 07:00 Intake Total 3040 ml Output Total 1975 ml Balance 1065 ml Labs Laboratory Tests 05/09/20 05:20: White Blood Count 8.5, Red Blood Count 3.75L, Hemoglobin 10.4L, Hematocrit 32L, Mean Corpuscular Volume 86, Mean Corpuscular Hemoglobin 28, Mean Corpuscular Hemoglobin Concent 32, Red Cell Distribution Width 14.9H, Platelet Count 146, Mean Platelet Volume 12.3H, Immature Granulocyte % (Auto) 0, Neutrophils (%) (Auto) 67, Lymphocytes (%) (Auto) 25, Monocytes (%) (Auto) 7, Eosinophils (%) (Auto) 1, Basophils (%) (Auto) 0, Neutrophils # (Auto) 5.7, Lymphocytes # (Auto) 2.1, Monocytes # (Auto) 0.6, Eosinophils # (Auto) 0.1, Basophils # (Auto) 0.0, Immature Granulocyte # (Auto) 0.0 KENDRICK PAYTON DO May 09, 2020 8:47 am
[2020-05-09 08:55] VITALS: BP 113/66
[2020-05-09] MEDS: DOCUSATE SODIUM 100 MG (COLACE) CAP PO SCH (09:04)
[2020-05-09] MEDS: HYDROcodone/APAP 5 MG/325 MG (LORTAB) TAB PO PRN ×2 (13:28→20:07)
[2020-05-09] MEDS: IBUPROFEN 600 MG (MOTRIN) TAB PO SCH ×2 (13:28→18:29)
[2020-05-10] MEDS: IBUPROFEN 600 MG (MOTRIN) TAB PO SCH ×3 (00:41→12:36)
[2020-05-10] MEDS: DOCUSATE SODIUM 100 MG (COLACE) CAP PO SCH ×2 (00:41→08:22)
[2020-05-10 00:45] VITALS: BP 102/59
[2020-05-10 06:18] VITALS: BP 91/66
--- NOTE | 2020-05-10 07:32 | Postpartum Progress Note ---
Note Note Day # 2 Subjective: Patient is without complaints. Ambulating, voiding. Tolerating a regular diet without nausea or vomiting. Normal lochia. Pain is well controlled with oral pain medications. Objective: Physical Exam: General - Alert and oriented, no apparent distress Abdomen - Soft, appropriately tender to palpation, non-distended, fundus firm at umbilicus Extremities - no edema, negative Graciela's bilaterally Assessment: POD 2 RLTCS Acute blood loss anemia Plan: Routine care. Encourage breast feeding. Encourage ambulation. Ferrous sulfate supplementation. Plan for discharge today Vitals - Labs Vital Signs - I&O Vital Signs Date Time Temp Pulse Resp B/P (MAP) Pulse Ox O2 Delivery O2 Flow Rate FiO2 05/10/20 06:18 37.0 81 18 91/66 (74) 97 Room Air 05/10/20 00:45 36.9 85 18 102/59 (73) 97 Room Air 05/09/20 08:55 36.9 94 18 113/66 (82) Room Air Labs Microbiology 05/08/20 MRSA Screen - Final, Complete MRSA not isolated KENDRICK PAYTON DO May 10, 2020 07:32
[2020-05-10 08:23] VITALS: BP 95/57
--- NOTE | 2020-05-10 08:23 | NUR ---
AM shift assessment completed and vital signs obtained, see interventions. Plan of care reviewed with patient. Patient verbalizes understanding and questions answered. Scheduled Colace and PNV PO given. Addendum: 05/10/20 at 0935 by JOSEFA TORRES RN PNV not given.
[2020-05-10] MEDS: HYDROcodone/APAP 5 MG/325 MG (LORTAB) TAB PO PRN (09:53)
--- NOTE | 2020-05-10 09:53 | NUR ---
Lortab 2 PO given for patient's c/o pain rated 6/10. Patient denies any further needs or concerns at this time.
--- NOTE | 2020-05-10 12:33 | NUR ---
Discharge instructions and medications reviewed with the patient both written and verbally. Patient verbalizes understanding and questions answered. Scheduled Motrin PO given.
--- NOTE | 2020-05-10 13:30 | NUR ---
Patient discharged at this time via wheelchair and accompanied down to awaiting private vehicle by this RN. No signs or symptoms of distress noted.
== END 2020-05-10 13:30 | disposition home or self-care (01) | DRG 787 ==
LOC: LDRP 06:03
PROVIDERS: ADMIT Obstetrics & Gynecology; ATTEND Obstetrics & Gynecology
PROC: 10D00Z1 Extraction of Products of Conception, Low, Open Approach (ICD-10-PCS; principal; 2020-05-08 07:19)
DX: O34.211 Maternal care for low transverse scar from previous cesarean delivery (principal); D62 Acute posthemorrhagic anemia; Z3A.39 39 weeks gestation of pregnancy; Z37.0 Single live birth; O90.81 Anemia of the puerperium
CPT/HCPCS: 36415; 85025; 86850; 86900; 86901; 87081; 94664

== ENCOUNTER 2021-06-27 16:35 | Emergency (ER) | payer BC ==
[~2021-06-27] VITALS: Ht 145 cm; Wt 66.0 kg
[~2021-06-27 16:35] MED LIST changes: +ACHD5005 PO; -CITRIC ACID/SOB CIT (BICITRA) 30 ML UDC ONE; +DOCU-239 PO; -FAMOTIDINE 20MG/2ML IV (PEPCID) ONE; +IBUP-844 PO; -METOCLOPRAMIDE INJ 10 MG/2 ML (REGLAN) ONE; -WATER (STERILE) FOR INJECTION 20 ML ONE; -ceFAZolin INJECTION 1,000 MG ONE
--- NOTE | 2021-06-27 17:32 | ED Abdominal Pain ---
General Chief Complaint: OB < 20 WEEKS Stated Complaint: VAGINAL BLEEDING Nursing Triage Note: PT AMB TO FT 2 ALONGSIDE W REPORTS OF VAGINAL SPOTTING AND BLOOD IN HER DISCHARGE AT APPROX 1430. PT HAS ESTIMATED DUE DATE OF 01/23/21. A&OX4. Source of Information: Patient Exam Limitations: No Limitations History of Present Illness Date Seen by Provider: Jun 27, 2021 Time Seen by Provider: 17:31 Initial Comments To ER with vaginal bleeding and abdominal cramping. G3, P2. First day of last menstrual period was 04/18/2021. She plans to follow with Dr. Addison for this. She developed some abdominal cramping yesterday and then this afternoon she noticed a little blood on the toilet paper after she wiped. She did pass one clot. Timing/Duration: 1-2 Days Severity/Quality: Cramping Location: Suprapubic Radiation: No Radiation Activities at Onset: None Allergies and Home Medications Allergies Coded Allergies: No Known Drug Allergies (Unverified , 05/02/20) Patient Home Medication List Home Medication List Reviewed: Yes Docusate Sodium (Dok) 100 Mg Capsule, 100 MG PO BID PRN for CONSTIPATION-1ST LINE Prescribed by: KENDRICK PYATON on 05/08/20 07 Hydrocodone/Acetaminophen (Hydrocodone-Acetamin 5-325 mg) 1 Each Tablet, 1-2 TAB PO Q6HR PRN for PAIN-MODERATE (5-7) Prescribed by: KENDRICK PAYTON on 05/08/20 07 Ibuprofen (Ibu) 600 Mg Tablet, 600 MG PO Q6HR Prescribed by: KENDRICK PAYTON on 05/08/20 0720 Vit No.124/Iron/FA ( Vitamin Tablet) 1 Each Tablet, 1 EACH PO DAILY, (Reported) Entered as Reported by: MARIA ISABEL CHILDS on 05/02/20 1006 Review of Systems Review of Systems Constitutional: see HPI EENTM: No Symptoms Reported Respiratory: No Symptoms Reported Cardiovascular: No Symptoms Reported Gastrointestinal: See HPI, Abdominal Pain Genitourinary: No Symptoms Reported Musculoskeletal: no symptoms reported Skin: no symptoms reported Psychiatric/Neurological: No Symptoms Reported Endocrine: No Symptoms Reported Hematologic/Lymphatic: No Symptoms Reported Past Equutic-Xvsork-Qzffbx Hx Patient Social History Tobacco Use?: No Use of E-Cig and/or Vaping dev: No Substance use?: No Alcohol Use?: No Immunizations Up To Date Tetanus Booster (TDap): Less than 5yrs Seasonal Allergies Seasonal Allergies: No Past Medical History Surgeries: Yes Respiratory: No Cardiac: No Neurological: No Expected Date of Delivery: Jan 23, 2021 Sexually Transmitted Disease: No HIV/AIDS: No Genitourinary: No Gastrointestinal: No Musculoskeletal: No Endocrine: No HEENT: No Loss of Vision: Denies Hearing Impairment: Denies Cancer: No Psychosocial: No Integumentary: No Blood Disorders: No Adverse Reaction/Blood Tranf: No (N/A) Physical Exam Vital Signs Vital Signs - First Documented 06/27/21 16:56 Temp 36.5 Pulse 93 Resp 20 B/P (MAP) 123/85 (98) Pulse Ox 100 O2 Delivery Room Air Capillary Refill : Less Than 3 Seconds Height/Weight/BMI Height: 4'9.00" Weight: 168lbs. 8.0oz. 76.971520mh; 31.00 BMI Method: General Appearance: WD/WN, no apparent distress HEENT: PERRL/EOMI, normal ENT inspection Respiratory: no respiratory distress, no accessory muscle use Gastrointestinal: normal bowel sounds, non tender, soft Extremities: normal range of motion, non-tender Neurologic/Psychiatric: alert, normal mood/affect, oriented x 3 Skin: normal color, warm/dry Progress/Results/Core Measures Results/Orders Lab Results Laboratory Tests Test 06/27/21 17:40 06/27/21 18:10 Range/Units White Blood Count 9.5 4.3-11.0 10^3/uL Red Blood Count 4.22 3.80-5.11 10^6/uL Hemoglobin 12.6 11.5-16.0 g/dL Hematocrit 39 35-52 % Mean Corpuscular Volume 91 80-99 fL Mean Corpuscular Hemoglobin 30 25-34 pg Mean Corpuscular Hemoglobin Concent 33 32-36 g/dL Red Cell Distribution Width 13.2 10.0-14.5 % Platelet Count 274 130-400 10^3/uL Mean Platelet Volume 10.7 9.0-12.2 fL Immature Granulocyte % (Auto) 0 % Neutrophils (%) (Auto) 66 42-75 % Lymphocytes (%) (Auto) 26 12-44 % Monocytes (%) (Auto) 6 0-12 % Eosinophils (%) (Auto) 1 0-10 % Basophils (%) (Auto) 0 0-10 % Neutrophils # (Auto) 6.3 1.8-7.8 10^3/uL Lymphocytes # (Auto) 2.5 1.0-4.0 10^3/uL Monocytes # (Auto) 0.6 0.0-1.0 10^3/uL Eosinophils # (Auto) 0.1 0.0-0.3 10^3/uL Basophils # (Auto) 0.0 0.0-0.1 10^3/uL Immature Granulocyte # (Auto) 0.0 0.0-0.1 10^3/uL Human Chorionic Gonadotropin, Quant 4876 H <5 MIU/ML Urine Color YELLOW Urine Clarity CLEAR Urine pH 6.0 5-9 Urine Specific [place] <=1.005 1.016-1.022 Urine Protein NEGATIVE NEGATIVE Urine Glucose (UA) NEGATIVE NEGATIVE Urine Ketones NEGATIVE NEGATIVE Urine Nitrite NEGATIVE NEGATIVE Urine Bilirubin NEGATIVE NEGATIVE Urine Urobilinogen 0.2 < = 1.0 MG/DL Urine Leukocyte Esterase NEGATIVE NEGATIVE Urine RBC (Auto) 3+ H NEGATIVE Urine RBC 5-10 H /HPF Urine WBC NONE /HPF Urine Squamous Epithelial Cells 5-10 /HPF Urine Crystals NONE /LPF Urine Bacteria NEGATIVE /HPF Urine Casts NONE /LPF Urine Mucus NEGATIVE /LPF Urine Culture Indicated NO My Orders Orders - MOJGAN TUCKER DIRECTOR OF MARKET INTELLIGENCE Hcg,Quantitative (06/27/21 17:25) Abo Rh Type (06/27/21 17:25) Cbc With Automated Diff (06/27/21 17:25) Ua Culture If Indicated (06/27/21 17:25) Us Ob<14 Wks Sngle W/Transvag (06/27/21 18:28) Vital Signs/I&O 06/27/21 16:56 Temp 36.5 Pulse 93 Resp 20 B/P (MAP) 123/85 (98) Pulse Ox 100 O2 Delivery Room Air Blood Pressure Mean: 98 Departure Impression Primary Impression: Intrauterine Additional Impressions: Vaginal bleeding Threatened Disposition: 01 HOME, SELF-CARE Condition: Stable Departure-Patient Inst. Decision time for Depature: 19:55 Referrals: SASHA LOPEZ MD (PCP/Family) Primary Care Physician Patient Instructions: Bleeding In Early Add. Discharge Instructions: 1. Return to ER for any concerns 2. Follow-up with your doctor next week. Return to ER for any concerns. All discharge instructions reviewed with patient and/or family. Voiced understanding. MOJGAN TUCKER APRN Jun 27, 2021 17:32
[2021-06-27 17:44] LABS: BASOPHILS % (AUTO) 0 % (0-10); EOSINOPHILS # (AUTO) 0.1 10^3/uL (0.0-0.3); EOSINOPHILS % (AUTO) 1 % (0-10); HEMATOCRIT 39 % (35-52); HEMOGLOBIN 12.6 g/dL (11.5-16.0); LYMPHOCYTES # (AUTO) 2.5 10^3/uL (1.0-4.0); LYMPHOCYTES % (AUTO) 26 % (12-44); MEAN CORPUSCULAR HEMOGLOBIN 30 pg (25-34); MEAN CORPUSCULAR HGB CONC 33 g/dL (32-36); MEAN CORPUSCULAR VOLUME 91 fL (80-99); MEAN PLATELET VOLUME 10.7 fL (9.0-12.2); MONOCYTES # (AUTO) 0.6 10^3/uL (0.0-1.0); MONOCYTES % (AUTO) 6 % (0-12); NEUTROPHILS # (AUTO) 6.3 10^3/uL (1.8-7.8); NEUTROPHILS % (AUTO) 66 % (42-75); PLATELET COUNT 274 10^3/uL (130-400); WHITE BLOOD COUNT 9.5 10^3/uL (4.3-11.0)
[2021-06-27 18:18] LABS: BILIRUBIN,URINE NEGATIVE (NEGATIVE); CLARITY,URINE CLEAR; COLOR,URINE YELLOW; GLUCOSE, URINE (UA) NEGATIVE (NEGATIVE); KETONES,URINE NEGATIVE (NEGATIVE); LEUKOCYTE ESTERASE ,URINE NEGATIVE (NEGATIVE); NITRITE,URINE NEGATIVE (NEGATIVE); PROTEIN,URINE NEGATIVE (NEGATIVE)
[2021-06-27 18:25] LABS: BACTERIA,URINE NEGATIVE /HPF
--- NOTE | 2021-06-27 19:51 | Diagnostic Imaging Report ---
INDICATION: Threatened miscarriage. EXAMINATION: OB ultrasound. There appears to be an intrauterine gestational sac. Gestational sac is oval shaped. There is a yolk sac visible. Small pole measuring 2.5 mm is seen and corresponds to a gestational age of 5 weeks and 6 days. There is a corpus luteum on the left ovary. Right ovary is unremarkable. There is some fluid seen in the cervical canal. IMPRESSION: There appears to be an intrauterine with an estimated gestational age of 5 weeks 6 days. Dictated by: Dictated on workstation # [id number]
[2021-06-27 20:02] VITALS: BP 116/81
== END 2021-06-27 20:02 | disposition home or self-care (01) ==
LOC: EDUNIT# 16:35 → ER 16:37
DX: O20.0 Threatened abortion (principal); Z3A.00 Weeks of gestation of pregnancy not specified
CPT/HCPCS: 36415; 76801; 76817; 81000; 84702; 85025; 86900; 86901